=== PATIENT | male | born 1985 | race Caucasian/White ===

== ENCOUNTER → 2020-12-26 | Outpatient (CLI) | payer OTHER ==
--- NOTE | 2020-12-26 10:37 | RAD ---
AP and Lateral Views of the Chest 12/26/2020 10:14 AM Indication: Reason: SHORTNESS OF BREATH / Spl. Instructions: / History: Comparison: None Findings: There is no focal consolidation or infiltrate identified. The cardiomediastinal silhouette is within normal limits. There is no evidence of pneumothorax or pleural effusion. No acute osseous a bnormalities are identified. Impression: No evidence of acute cardiopulmonary process. Electronically signed by: Silvestre Ramirez MD (12/26/2020 10:35 AM) [id number]
== END ==
LOC: RAD 10:04
PROVIDERS: ATTEND Physician Assistant
DX: J22 Unspecified acute lower respiratory infection (principal); R06.02 Shortness of breath
CPT/HCPCS: 71046